=== PATIENT | female | born 1950 | race Two or more races ===

== ENCOUNTER 2023-05-31 21:07 | Emergency (ER) | payer MEDICARE, SELFPAY ==
[2023-05-31 21:11] VITALS: BP 189/65; PULSE 76; RESP 16; TEMP 36.7; O2SAT 99; BMI 33.8
--- NOTE | 2023-05-31 21:26 | XR_ITS ---
[facility] [id number] Patient Name: CHIO CARNEY MRN: [id number] date: 1950 Sex: F Assigned Patient Location: ER Current Patient Location: ER Accession/Order Number: [id number] Exam Date: 05/31/2023 22:15 Report Date: 05/31/2023 22:29 At the request of: CLARITA LYNCH Procedure: XR knee RT 3V EXAMINATION: XR knee RT 3V, , 05/31/2023 10:15 PM EST INDICATION: pain HISTORY: Ordering Provider Reason for Exam: pain Technologist Note: Additional: COMPARISON: None. TECHNIQUE: Right knee x-ray: 3 view(s). FINDINGS: No acute fracture. Joint alignment is anatomic. Joint spaces are preserved. No significant joint effusion. Soft tissues are within normal limits. XR/XR knee RT 3V IMPRESSION: No acute fracture or traumatic malalignment. Electronically authenticated by: TOMAS CHARLES Date: 05/31/2023 22:29
--- NOTE | 2023-05-31 21:26 | ED_ITS ---
HPI - Fall General Chief Complaint: Fall Stated Complaint: FALL Time Seen by Provider: 05/31/23 21:23 Source: patient History of Present Illness HPI Narrative: nearly fell this AM in the shower. later today developed pain of right knee with weight bearing. Not able to recall any other injury. denies pain of her hip or back and only has pain of the leg when she is walking Onset (ago): hour(s) Related Data Home Medications Medication Instructions Recorded Confirmed glipizide 5 mg tablet mg 05/31/23 insulin degludec 100 unit/mL (3 unit subcut 05/31/23 mL) subcutaneous pen (Tresiba FlexTouch U-100 insulin) levothyroxine 25 mcg tablet mcg 05/31/23 metformin 1,000 mg tablet mg 05/31/23 pioglitazone 30 mg tablet mg 05/31/23 rosuvastatin 5 mg tablet mg 05/31/23 semaglutide 0.25 mg or 0.5 mg (2 mg subcut 05/31/23 mg/3 mL) subcutaneous pen injector (Ozempic) sertraline 50 mg tablet mg 05/31/23 Allergies Allergy/AdvReac Type Severity Reaction Status Date / Time No Known Drug Allergies Allergy Verified 05/31/23 21:16 Review of Systems ROS Status of ROS 10 or more systems reviewed and unremark able except as noted in history and below [facility] Social History Smoking status: Never smoker Exam Constitutional Vital Signs, click to edit/add: Last Vital Signs Temp 98.0 F 05/31/23 21:11 Pulse 76 05/31/23 21:11 Resp 16 05/31/23 21:11 BP 189/65 H 05/31/23 21:11 Pulse Ox 99 05/31/23 21:11 O2 Del Method Room Air 05/31/23 21:11 Common normals: no apparent distress, oriented x3, no limitations and healthy appearing Eye Common normals: EOMs intact bilaterally and conjunctivae normal Respiratory Common normals: normal respiratory effort and clear to auscultation bilaterally Cardio Common normals: regular rate, regular rhythm, S1 normal heart sound and S2 normal heart sound Extremity Common normals: normal to inspection and full ROM Other: right knee exam is neg Neuro Common normals: oriented x3, CN's II-XII intact bilaterally, moves all extremities and no focal motor deficits Psych Appearance: grossly normal Course Vital Signs Vital signs: Vital Signs Temperature 98.0 F 05/31/23 21:11 Pulse Rate 76 05/31/23 21:11 Respiratory Rate 16 05/31/23 21:11 Blood Pressure 189/65 H 05/31/23 21:11 Pulse Oximetry 99 05/31/23 21:11 Oxygen Delivery Method Room Air 05/31/23 21:11 Temperature 98.0 F 05/31/23 21:11 Pulse Rate 76 05/31/23 21:11 Respiratory Rate 16 05/31/23 21:11 Blood Pressure 189/65 H 05/31/23 21:11 Pulse Oximetry 99 05/31/23 21:11 Oxygen Delivery Method Room Air 05/31/23 21:11 MDM - Fall MDM Narrative Medical decision making narrative: near fall earlier today while in shower. later developed pain right knee . pain only when she bears weight. Exam of the knee is neg. xray ordered xray neg. Patient informed of the working diagnosis of knee sprain. provided with a knee brace and discharged home to follow up with orthopedics Discharge Plan Discharge Chief Complaint: Fall Clinical Impression: Right knee sprain Patient Disposition: Home, Self-Care Prescriptions / Home Meds: No Action levothyroxine 25 mcg tablet metformin 1,000 mg tablet pioglitazone 30 mg tablet sertraline 50 mg tablet glipizide 5 mg tablet rosuvastatin 5 mg tablet insulin degludec [Tresiba FlexTouch U-100] 100 unit/mL (3 mL) insulin pen SUBCUT Ozempic 0.25 mg or 0.5 mg (2 mg/3 mL) pen injector SUBCUT Instructions: Knee Sprain (DC) Additional Instructions: follow up with Dr schuler Stand Alone Forms: Portal Instructions Referrals: Physician,Non-Staff, MD [Primary Care Provider] - 1 week
--- NOTE | 2023-05-31 21:45 | PC.NURSE ---
Reports pain to right knee, no redness or swelling noted, skin pink and warm.
== END 2023-05-31 23:51 | disposition home or self-care (01) ==
PROVIDERS: Emergency Provider Internal Medicine
DX: S83.91XA Sprain of unspecified site of right knee, initial encounter (principal); X58.XXXA Exposure to other specified factors, initial encounter; Z79.84 Long term (current) use of oral hypoglycemic drugs; Z79.4 Long term (current) use of insulin
CPT/HCPCS: 73562; 99283